=== PATIENT | male | born 1940 | race Caucasian/White ===

== ENCOUNTER → 2019-09-19 10:15 | Outpatient (BNVA) | payer MEDICARE, SELFPAY | PROVIDERS: Family Provider Pediatrics; PCP Pediatrics; Visit Provider Emergency Medicine | DX: I10 Essential (primary) hypertension (principal); D50.9 Iron deficiency anemia, unspecified; I50.9 Heart failure, unspecified; Z79.899 Other long term (current) drug therapy | CPT/HCPCS: 80053; 80061; 82652; 83880; 84443; 85007; 85027 ==

== ENCOUNTER → 2019-11-10 17:31 | Outpatient (BNVA) | payer MEDICARE, SELFPAY | PROVIDERS: Family Provider Pediatrics; PCP Pediatrics; Visit Provider Family Medicine | DX: I11.0 Hypertensive heart disease with heart failure (principal); I50.32 Chronic diastolic (congestive) heart failure | CPT/HCPCS: 80053; 80061; 85025 ==

== ENCOUNTER → 2020-03-26 11:59 | Outpatient (BNVA) | payer MEDICARE, SELFPAY | PROVIDERS: Family Provider Pediatrics; PCP Pediatrics; Visit Provider Emergency Medicine | DX: R60.9 Edema, unspecified (principal); R06.89 Other abnormalities of breathing; R05 Cough; R68.89 Other general symptoms and signs | CPT/HCPCS: 71046; 83880; 87400; 87635 ==